=== PATIENT | female | born 1990 | race African-American/Black ===

== ENCOUNTER 2020-07-01 17:47 | Emergency (ER) | payer MEDICAID ==
[~2020-07-01] VITALS: Ht 162.6 cm; Wt 77.0 kg
[2020-07-01 18:28] LABS: BASOPHILS % 1.2 % (0.0-2.0); HEMOGLOBIN. 13.7 g/dL (12.0-16.0); LYMPHOCYTES % 37.6 % (20.0-50.0); MEAN CORPUSCULAR HEMOGLOBIN 28.4 pg (28.0-32.0); MEAN CORPUSCULAR VOLUME 84.7 fL (81.0-99.0); MEAN PLATELET VOLUME 10.9 fl (7.4-10.4); MONOCYTES % 8.5 % (2.0-8.0); NEUTROPHILS % 51.7 % (40.0-76.0); PLATELET 159 x1000/uL (130-400); RED BLOOD CELL COUNT 4.84 mill/uL (4.2-5.4); RED CELL DISTRIBUTION WIDTH 13.7 % (11.6-14.6)
[2020-07-01 18:52] LABS: CHLORIDE 109 mEq/L (98-107)
[2020-07-01] MEDS ORDERED: DEXTROSE 50% WATER 50ML SYRINGE IV ONE (19:15)
[2020-07-01] MEDS ORDERED: ALBU6.7H9 INH (19:17)
[2020-07-01 19:48] VITALS: BP 129/89
== END 2020-07-01 20:27 | disposition home or self-care (01) ==
LOC: ER 17:47
DX: R06.00 Dyspnea, unspecified (principal); R06.02 Shortness of breath; R07.89 Other chest pain; Z20.822 Contact with and (suspected) exposure to COVID-19; F17.290 Nicotine dependence, other tobacco product, uncomplicated
CPT/HCPCS: 36415; 71045; 80053; 81025; 83880; 84484; 85025; 93005; 99285; C9803; U0003; U0005